=== PATIENT | female | born 1975 | race Caucasian/White ===

== ENCOUNTER 2018-03-17 05:17 | Observation (INO) ==
--- NOTE | 2018-03-09 10:20 | PAT Medication Instructions ---
Medication Instructions Date of Service March 09, 2018 Home Medications multivitamin 1 tab PO QAM polyethylene glycol 3350 [Miralax] 1 dose PO HS rizatriptan [Maxalt-HVAC SERVICE TECHNICIAN] 1 dose PO NEEDED Continue as directed rizatriptan [Maxalt-HVAC SERVICE TECHNICIAN] 1 dose PO NEEDED DO NOT take the morning of surgery multivitamin 1 tab PO QAM Take morning of surgery NOTHING TO EAT OR DRINK AFTER MIDNIGHT Take evening before surgery polyethylene glycol 3350 [Miralax] 1 dose PO HS Other Notes If you have any questions please call us at [phone] or [phone] or [phone] or [phone]
--- NOTE | 2018-03-09 14:23 | Anesthesiology Consultation ---
Date of Service March 09, 2018 Assessment & Plan (1) Encounter for pre-operative examination: Chart Review Chart Review: Acceptable Risk for Surgery and Patient seen in Pre Admission Testing Consults Requested none Teaching & Discussion Pre-Anesthesia Teaching/Discussion Notes: Instructed NPO after midnight before surgery, except medications with 15 cc of water. Medication instructions provided according to the PAT guidelines. History Surgery Operation Date: 03/17/18 09:20 Proposed Procedures p Total Laparoscopic Hysterectomy, Bilateral Salpingectomy and Cystoscopy - Geno Pennington Height/Weight Height: 5 ft 2 in Weight: 50.5 kg Allergies Allergy/AdvReac Type Severity Reaction Status Date / Time No Known Allergies Allergy Unverified 02/23/18 12:48 Medications Home Medications Medication Instructions Recorded Confirmed Last Taken multivitamin 1 tab PO QAM 02/23/18 02/23/18 Unknown polyethylene glycol 3350 [Miralax] 1 dose PO HS 02/23/18 02/23/18 Unknown rizatriptan [Maxalt-STYLIST APPRENTICE] 1 dose PO UD PRN 02/23/18 02/23/18 Unknown Past Medical History Medical History Migraine Nausea and vomiting after administration of anesthetic agent Past Family History Family History Grandmother Family hx of colon cancer Aunt Family hx of colon cancer Past Surgical History Surgical History H/O wisdom tooth extraction History of section X2 History of cholecystectomy History of colonoscopy History of dilatation and curettage Past Anesthesia History No Hx of Anesthesia Complications and No Family Hx of Anesthesia Complications History of PONV Yes Motion Sickness Screening History of Motion Sickness: Yes Social History Smoking Status: Never smoker Do You Dip or Chew Tobacco: No Hx Alcohol Use: No Hx Substance Use: No Exercise / Class Metabolic Activity II 4-5 Yardwork/Stairs/Walk up hill (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 Walks on treadmill daily. Able to climb FOS. Denies CP or SOB. ) Review of Systems Patient denies chest pain, shortness of breath, dyspnea on exertion, joint pain , reflux, cough, wheezing, palpitations. Physical Exam Vital Signs BP: 96/64 P: 63 R: 14 T: 98.3 SPO2: 97% on RA ENMT Thyromental Distance: < 3.5 Finger Breadths (3) Mallampati Class: II Neck normal visual inspection and trachea midline Respiratory normal respiratory effort Auscultation: lungs clear to auscultation bilaterally Cardiovascular Rate/Rhythm: regular rate and regular rhythm Heart Sounds: no murmur Neurologic moves all extremities Psychiatric Orientation: alert and oriented x 3 Testing Laboratory Results 03/09/18 14:51 Blood Type O Negative 03/09/18 14:51 Antibody Screen NEGATIVE 03/09/18 14:51
[2018-03-09 15:18] LABS: Basophils # (auto) 0.02 K/uL (0-0.2); Basophils % (auto) 0.3 %; Eosinophils % (auto) 1.7 %; Hematocrit (blood only) 39.2 % (37-47); Hemoglobin 13.3 g/dL (12.0-16.0); Immature Granulocytes # (auto) 0.01 K/uL (0.00-0.02); Immature Granulocytes % (auto) 0.2 %; Lymphocytes # (auto) 2.09 K/uL (1.2-3.4); Lymphocytes % (auto) 35.9 %; Mean Corpuscular Hgb Conc 33.9 g/dL (32-36); Mean Corpuscular Volume 96.3 fL (80-100); Mean Platelet Volume 9.2 fL (7.4-10.4); Monocytes # (auto) 0.54 K/uL (0.11-0.59); Monocytes % (auto) 9.3 %; Neutrophils # (auto) 3.06 K/uL (1.4-6.5); Neutrophils % (auto) 52.6 %; Platelet Count 224 K/uL (130-400); RDW Coefficient of Variation 12.2 % (11.5-14.5); RDW Standard Deviation 42.7 fL (36.4-46.3); Red Blood Count 4.07 M/uL (4.2-5.4); White Blood Count 5.82 K/uL (4.8-10.8)
[2018-03-17] MEDS ORDERED: LACTATED RINGER'S 1,000 ML IV SCH (06:00)
[2018-03-17] MEDS ORDERED: LR 15ML/HR IV SCH (06:00)
[2018-03-17] MEDS ORDERED: CEFAZOLIN 2000MG 2,000 MG/15 ML SYR IV SCH (06:00)
[2018-03-17] MEDS: SCOPOLAMINE 1.5 MG TDSY TD SCH (06:14)
[2018-03-17] MEDS ORDERED: PROPOFOL IV EMULSION 10 MG/ML 20 ML VIAL IV ONE (06:34)
[2018-03-17] MEDS ORDERED: ONDANSETRON INJ 2 MG/ML 2 ML VIAL ONE ×2 (06:34→08:49)
[2018-03-17] MEDS ORDERED: MIDAZOLAM HCL 1 MG/ML 2ML VIAL ONE (06:34)
[2018-03-17] MEDS ORDERED: GLYCOPYRROLATE 0.2 MG/ML VIAL ONE (06:34)
[2018-03-17] MEDS ORDERED: NEOSTIGMINE METHYLSULFATE 5 MG/5 ML SYR ONE (06:34)
[2018-03-17] MEDS ORDERED: DEXAMETHASONE SOD INJ 4 MG/ML VIAL ONE (06:34)
[2018-03-17] MEDS ORDERED: LIDOCAINE HCL 2% 2 ML VIAL/AMP(20MG/ML) INFIL ONE (06:34)
[2018-03-17] MEDS ORDERED: fentaNYL citrate 100 MCG/2 ML VIAL ONE ×2 (06:34→07:57)
[2018-03-17] MEDS ORDERED: ROCURONIUM BROMIDE 10 MG/ML 5 ML VIAL ONE (06:35)
[2018-03-17] MEDS ORDERED: BUPIVACAINE 0.5 % 5 MG/1 ML MPF 30ML VIAL ONE (06:36)
[2018-03-17] MEDS ORDERED: METHYLENE BLUE 0.5% 10 ML VIAL ONE (06:37)
--- NOTE | 2018-03-17 06:38 | History & Physical Bridge Note ---
Date of Service March 17, 2018 History & Physical Bridge Note I have examined the patient, reviewed the History & Physical and in the interval since the performance of the History & Physical I have noted the following changes of clinical significance: no changes noted
[2018-03-17] MEDS ORDERED: ePHEDrine sulfate 50 MG/ML AMP IV PRN (07:01)
[2018-03-17] MEDS ORDERED: HYDROmorphone INJ 2 MG/ML SYR/VIAL IV PRN (07:01)
[2018-03-17] MEDS ORDERED: ATROPINE SULFATE 0.1 MG/ML 10ML SYR IV PRN (07:01)
[2018-03-17] MEDS ORDERED: ONDANSETRON INJ 2 MG/ML 2 ML VIAL IV PRN ×2 (07:01→11:47)
[2018-03-17] MEDS ORDERED: PROMETHAZINE HCL 6.25 MG in SODIUM CHLORIDE 0.9% 50 ML IV PRN (07:01)
[2018-03-17] MEDS ORDERED: fentaNYL citrate 100 MCG/2 ML VIAL IV PRN (07:01)
[2018-03-17] MEDS ORDERED: HYDROmorphone INJ 2 MG/ML SYR/VIAL ONE (07:17)
[2018-03-17] MEDS ORDERED: METOCLOPRAMIDE HCL INJ 5 MG/ML 2 ML VIAL ONE (07:18)
[2018-03-17] MEDS ORDERED: ePHEDrine sulfate 50 MG/ML SYR ONE (07:23)
[2018-03-17] MEDS ORDERED: TISSEEL FIBRIN SEALANT 10ML TOP ONE (08:07)
--- NOTE | 2018-03-17 08:55 | Post Operative Brief Note ---
Immediate Post Op Note v1 Date of Surgery March 17, 2018 Pre & Post Diagnosis Operation Date: 03/17/18 07:00 Pre-Op Diagnosis: Abnormal Uterine Bleeding; Failed Medical Management, Failed surgical management Post-Op Diagnosis: Abnormal Uterine Bleeding; Failed Medical Management, Failed surgical management Procedure Operation Date: 03/17/18 07:00 Actual Procedures p Total Laparoscopic Hysterectomy, Bilateral Salpingectomy and Cystoscopy( Bilateral) - Geno Pennington Surgeon Geno Pennington Layout Inspector Randi Atkins PA-C Estimated Blood Loss 100 Findings Consistent with Post-Op Diagnosis
--- NOTE | 2018-03-17 09:13 | Operative Report ---
Post Operative Report Pre & Post Diagnosis Operation Date: 03/17/18 07:00 Pre-Op Diagnosis: Abnormal Uterine Bleeding; Failed Medical Management Post-Op Diagnosis: Abnormal Uterine Bleeding; Failed Medical Management Procedure Operation Date: 03/17/18 07:00 Actual Procedures p Total Laparoscopic Hysterectomy, Bilateral Salpingectomy and Cystoscopy( Bilateral) - Geno Pennington Surgeon Geno Pennington Acid Wash Operator Randi Atkins PA-C Estimated Blood Loss 100 Findings See Below 1. 7 cm anteverted uterus 2. Normal ovaries bilaterally 3. Bilaterally fallopian tubes with cysts 4. Posterior cul de sac with endometrial implants 5. Anterior cul de sac with scarring at the lower uterine segment 6. Normal appearing liver edge 7. Appendix not visualized Fluids 1000 ml Specimens Uterus, cervix, and bilateral fallopian tubes Drains None Anesthesia Type General Complications none Disposition Disposition: Recovery Room Indications 42 yo with abnormal uterine bleeding. Failed medical management with OCPs. Failed surgical management with endometrial ablation. Description of Procedure Under GA in the dorsal lithotomy position, the patient was prepped and drapped in the usual sterile fashion. Beginning at the vagina, a sheets catheter was inserted under sterile conditions and left in situ for the remainder of the case. A weighted speculum was then placed in the vagina and with the help of a right angle retractor the cervix was visualized and grasped anteriorly with a single tooth tenaculum. The cervical os was dilated. An Advincula uterine manipulator with a metal cup was inserted. The weighted speculum was then removed. Attention was then turned to the abdomen. 0.5% marcaine solution was used for infiltration of all port sites. Beginning in the subumbilical area, the skin was first infiltrated with ~ 2 cc of the marcaine solution, then a 5 mm incision was made through the skin with a #11 blade. Direct entry with 5 mm trocar, sleeve, and laprascope was made into the peritoneal cavity. The opening pressure was < 8 mmHg. The peritoneal cavity was insufflated with CO2 gas to a maximum pressure of 20 mmHg. Examination of the peritoneal cavity revealed no signs of injury from entry and normal anatomical structures. The patient was then placed in steep Trendelenburg and three more 5 mm trocars were placed, one on the right and two on the left, in the standard technique, taking care to avoid the epigastric vessels. All trocars were placed under direct visualization with no inadvertent damage to underlying structures. The uterus was upheld from below and revealed a normal uterus and fallopian tubes with cysts and normal ovaries. Beginning on the left side and working distally along the length of the fallopian tube, the mesosalpinx was exposed by lifting the tube up towards the anterior abdominal wall. The mesosalpinx was then sequentially, clamped, ligated , and cut using the ROSA Harmonic working alongside the length of the tube and towards the cornua. Once the level of the cornua was reached the tube was ligated and cut. Attention was then turned to the other side. The same process was repeated on the right, sequentially clamping, ligating, and cutting the mesosalpinx being sure to not injure the adjacent ovarian tissue or other surrounding structures. The round ligament was then ligated and cut. Following this, the anterior leaf of the broad ligament was then taken down on the right side, dissecting down towards the peritoneal reflection at the base of the bladder and adjacent to the cervix. The same process was then repeated on the left side such that both sides met and the anterior leaflet had been appropriately skeletonized. Once the bladder was appropriately dissected free from the lower anterior uterine segment and the tissues skeletonized, the uterine arteries were bilaterally clamped and ligated. Pedicles were checked and hemostatic. At the level of the metal cup of the uterine manipulator, the vaginal vault was incised circumferentially with an ROSA Harmonic. The uterus, cervix, and bilateral fallopian tubes were delivered through the vagina and sent to pathology. A vaginal occluder was inserted into the vagina to form a pneumatic seal and all the pedicles as well as the cuff edges were examined. The vaginal vault was then closed with a V-Loc barbed stitch being sure to avoid the bladder lateral pedicles. Following vault closure, an inspection of all areas was made to ensure hemostasis. Tissel was placed on the vaginal cuff and adnexal regions. All ports were removed under direct visualization and hemostasis noted. All the incision sites were then closed with 4-0 monocryl sutures in a subcuticular fashion and dermabond. The vaginal occluder and sheets catheter were removed. Cystoscopy was then performed. Normal appearing bladder dome. Bladder was free of lesions or suture. Brisk bilateral efflux of methylene blue was visualized by both ureteral orifices. The bladder was drained and the cystoscope was removed. At the end of the procedure, all sponges, instruments, and sharps were counted and correct. Estimated blood loss was 100 ml. The patient was taken to recovery in stable condition. I attest to the content of the Intraoperative Record and any orders documented therein. Any exceptions are noted below.
--- NOTE | 2018-03-17 10:06 | Anesthesiology Progress Note ---
Date of Service March 17, 2018 Anesthesia Post Procedure Vital Signs Vital Signs: Temp Pulse Pulse Resp BP BP Pulse Ox 03/17/18 10:01 36.4 C L 75 16 110/61 97 03/17/18 09:45 90 19 98/54 L 100 03/17/18 09:40 87 18 96/61 L 100 03/17/18 09:35 83 16 107/59 L 99 03/17/18 09:30 84 22 114/63 100 03/17/18 09:27 69 13 100 03/17/18 09:25 67 13 93/53 L 100 03/17/18 09:24 36.0 C L 71 74 13 101/56 L 101/56 L 100 03/17/18 05:38 36.7 C 67 18 106/62 100 Notes Mental Status: alert / awake / arousable Patient Amnestic to Procedure: Yes Nausea / Vomiting: adequately controlled Pain: adequately controlled Airway Patency, RR, SpO2: stable & adequate BP & HR: stable & adequate Hydration State: stable & adequate Anesthetic Complications: no major complications apparent
[2018-03-17] MEDS ORDERED: OXYCODONE/ACETAMINOPHEN 5mg/325mg TAB PO PRN (11:47)
[2018-03-17] MEDS ORDERED: SODIUM CHLORIDE 0.9% 1000ML 1,000 ML IV SCH (11:50)
[2018-03-17] MEDS ORDERED: PROMETHAZINE HCL 25 MG TAB PO PRN (11:52)
[2018-03-17] MEDS ORDERED: PROMETHAZINE HCL 25 MG in SODIUM CHLORIDE 0.9% 50 ML IV PRN (12:08)
[2018-03-17] MEDS: SIMETHICONE 80 MG CHEW PO SCH ×3 (14:15→23:49)
[2018-03-17] MEDS: ACETAMINOPHEN 325 MG TAB PO SCH ×3 (15:35→21:26)
[2018-03-17] MEDS: IBUPROFEN 600 MG TAB PO SCH ×3 (15:35→23:48)
[2018-03-17] MEDS: CHECK SCOPOLAMINE PATCH PLACEMENT SCH ×2 (15:37→23:49)
[2018-03-17] MEDS: LACTATED RINGER'S 1,000 ML IV SCH ×2 (15:40→17:57)
[2018-03-17] MEDS: DOCUSATE SODIUM 100 MG CAP PO SCH (20:55)
[2018-03-18] MEDS: ACETAMINOPHEN 325 MG TAB PO SCH ×2 (03:09→09:22)
[2018-03-18] MEDS: LACTATED RINGER'S 1,000 ML IV SCH (03:11)
[2018-03-18] MEDS: IBUPROFEN 600 MG TAB PO SCH (06:05)
[2018-03-18] MEDS: SCOPOLAMINE 1.5 MG TDSY TD SCH (06:06)
[2018-03-18] MEDS: SIMETHICONE 80 MG CHEW PO SCH (06:06)
[2018-03-18] MEDS: CHECK SCOPOLAMINE PATCH PLACEMENT SCH (07:23)
[2018-03-18] MEDS: DOCUSATE SODIUM 100 MG CAP PO SCH (08:35)
--- NOTE | 2018-03-18 09:33 | Gynecologic Progress Note ---
Date of Service March 18, 2018 s/p lap hyst Pt doing well d/c home with instructions Subjective Review of Systems All systems reviewed & are unremarkable except as noted in HPI & below Physical Exam 2 Vital Signs (Past 24 Hours): Last Vital Signs Temp 36.8 C 03/18/18 09:00 Pulse 62 03/18/18 09:00 Resp 16 03/18/18 09:00 BP 100/60 03/18/18 09:00 Pulse Ox 100 03/18/18 09:00 Constitutional: WD/WN, vitals as above Eyes: PERRL, conjunctivae normal, anicteric sclerae ENMT: external ear and nose normal, oropharynx normal Neck: trachea midline, no thyromegaly Respiratory: normal respiratory effort, lungs clear to auscultation Cardiovascular: RRR, no murmur, no edema Chest (Breasts): normal inspection/palpation of breasts Gastrointestinal (Abdomen): normal bowel sounds, soft, nontender, no hepatosplenomegaly Musculoskeletal: no cyanosis or clubbing, extremities motor strength 5/5 Skin: + incision (Incision clean,dry and intact) Neurologic: patellar DTR's 2+ bilat, sensation intact Psychiatric: A+Ox3, euthymic affect Genitourinary: no vaginal lesions, no adnexal mass Lymphatic: no cervical or axillary lymphadenopathy
--- NOTE | 2018-03-23 11:53 | Discharge Summary ---
Date of Service March 23, 2018 Admission HPI Per Admitting Provider 42 year old with LMP 03/04/18 using vasectomy for contraception with AUB. Patient with irregular menses over the last year. Menses every two weeks, lasting up to 14 days. TVUS in Apr 2016 revealed a remarkable pelvic ultrasound. Patient had an EMBx in June 2016 which revealed a proliferative endometrium. Repeat endometrial biopsy in Oct 2017 revealed benign secretory endometrium. Patient was prescribed OCPs for symptoms but discontinued secondary to worsening of migraines. Patient underwent an endometrial ablation in Dec 2017. Since ablation, Patientt reports continuous abnormal uterine bleeding. Bleeding varies from light to heavy. Bleeding can occur 5 days in a row, then a break for 1-2 days, then spotting or heavy bright red bleeding can ensue. Patient reports she is unaware when bleeding will occur and has to carry a pad daily. Denies abnormal vaginal discharge or pelvic pain. Denies urinary or bowel symptoms. Patient now desires definitive surgical management via hysterectomy. Admission Exam (Per Admitting) Constitutional WD/WN, vitals as above Respiratory normal respiratory effort, lungs clear to auscultation Cardiovascular RRR, no murmur, no edema Gastrointestinal (Abdomen) Inspection/Auscultation: abdomen normal to inspection, normal bowel sounds and + abdominal surgical incision Discharge Data Procedures Performed Operation Date: 03/17/18 07:00 Actual Procedures p Total Laparoscopic Hysterectomy, Bilateral Salpingectomy and Cystoscopy( Bilateral) - Geno Pennington Discharge Instructions POST OPERATIVE: BOWEL FUNCTION/MEDICATIONS: 1. Constipation pain and discomfort are the most common complaints 5-7 days after surgery. Points 2-6 address the things that can help. 2. Chewing gum can help stimulate the gut and help improve digestion and motility. 3. Milk of Magnesia 1-2 times per day until return of bowel function. 4. Colace is a stool softener that helps. Taking this 2-3 times per day until bowel function returns to normal is highly recommended. 5. You have been prescribed Simethicone to take very 6 hours and Colace to take twice daily. Please do this for the first 2 weeks after your surgery to assist with bowel movements and gas that can contribute to pain post operatively. 6. Drink plenty of fluids as this will also reduce constipation. 7. Narcotic pain medications will be prescribed by your physician. They are safe to use and we encourage you to use them. If you are not allergic, ibuprofen will also be prescribed. Many patients will be able to transition off of the narcotic medications to ibuprofen by postoperative day 3. 8. You have been given prescriptions for Acetaminophen and Ibuprofen, please take these every 6 hours, and alternate them. For example, if you take Acetaminophen at 12:00, take Ibuprofen at 3:00 and take Acetaminophen again at 6 :00. Please do so for 2 weeks. Please take Ibuprofen with food or milk. ACTIVITY RECOMMENDATIONS: 1. Get plenty of rest and listen to your body. If you are tired, take a nap. 2. You may shower, but do not take a tub bath until you see your doctor at the 2 week post operative visit. 3. Absolutely NO intercourse and nothing in the vagina until you are examined by your doctor at the 6 week visit. At that visit it will be determined when such activities can be resumed. This can range from 6-12 weeks after your surgery depending on healing time. 4. The main physical activity in the first week should be walking. By the second week you can slowly increase activity. There are no limits on walking up and down stairs. 5. Do not lift more than 5-10 lbs for 4 weeks. Remember the "one-handed rule", i.e. if you can lift something with only one hand it's likely okay. 6. Minimize clam sorter like vacuuming and exercising for 4 weeks. "Overdoing it" can lead to incisions not healing, pain and vaginal bleeding , so again, listen to your body. 7. Driving can be resumed when you feel able. Do not drive within 24 hours of taking a narcotic medication. EXPECTATIONS: 1. Vaginal spotting, bleeding and discharge are common after surgery. There may even be an odor to the discharge which is often related to sutures used in the vagina. If you experience heavy vaginal bleeding, call the office number day or night [phone]. 2. Bladder discomfort is common after surgery from the catheter. This usually resolves in 1-2 weeks. 3. By the end of the 3rd or 4th week you should be feeling much better. It may take up to 6 weeks for your energy levels to return to normal. 4. Narcotic medications have side effects such as: dizziness, headache, nausea and/or vomiting. If you suspect your pain medication is causing problems, call our office and we may be able to prescribe an alternate medication. 5. The skin incisions are often covered with a liquid bandage. This will gradually peel off over time. CALL THE OFFICE IF YOU HAVE ANY OF THE FOLLOWIN. Temperature of 101 degrees or higher. 2. Severe abdominal or pelvic pain not relieved by pain medication. 3. Persistent nausea or vomiting. 4. Increased pain with urination or difficulty urinating. 5. Bright red bleeding that soaks more than 1 pad per hour. CONTACT PHONE NUMBERS: Main Office: [phone] Avoid all tobacco products. If you need help to stop smoking, call [place]'s FREE QUITLINE at . This is a free call.
== END 2018-03-18 11:10 | disposition home health service (06) ==
LOC: ASU 05:17 → 4N 05:17